=== PATIENT | female | born 1960 | race Caucasian/White ===

== ENCOUNTER → 2017-07-05 23:49 | Outpatient (CLI) | payer MEDICAID ==
[2014-02-17 09:01] VITALS: BMI 25.9
[~2017-07-05 23:49] MED LIST: ASCORBIC ACID500 MG PO; CALCIUM 500 + D1 TAB PO; ESTROVEN; OMEGA-3100 MG; VITAMIN B-122500 MCG PO; VITAMIN E1000 UNIT PO; ZYRTEC10 MG PO
== END | disposition home or self-care (01) ==
LOC: D.MAMMO 13:15
DX: Z12.31 Encounter for screening mammogram for malignant neoplasm of breast (principal)

== ENCOUNTER → 2017-07-20 12:41 | Outpatient (CLI) | payer MEDICAID ==
[2014-02-17 09:01] VITALS: BMI 25.9
== END | disposition home or self-care (01) ==
LOC: D.MRI 07-18 11:30
DX: M25.562 Pain in left knee (principal)

== ENCOUNTER → 2017-11-30 16:52 | Outpatient (CLI) | payer MEDICAID ==
[2014-02-17 09:01] VITALS: BMI 25.9
== END | disposition home or self-care (01) ==
LOC: D.CT 16:52
DX: R10.9 Unspecified abdominal pain (principal)

== ENCOUNTER → 2018-10-23 10:46 | Outpatient (CLI) | payer MEDICAID ==
[2014-02-17 09:01] VITALS: BMI 25.9
== END | disposition home or self-care (01) ==
LOC: D.MRI 10:46
PROVIDERS: ATTEND Orthopaedic Surgery
DX: M25.562 Pain in left knee (principal)

== ENCOUNTER 2018-11-06 12:00 | Outpatient (CLI) | payer MEDICAID ==
[2014-02-17 09:01] VITALS: BMI 25.9
== END 2018-11-06 12:30 | disposition home or self-care (01) ==
LOC: D.MAMMO 12:00
PROVIDERS: ATTEND Family Medicine
DX: Z12.31 Encounter for screening mammogram for malignant neoplasm of breast (principal)

== ENCOUNTER 2019-12-11 15:57 | Emergency (ER) | payer MEDICAID ==
[~2019-12-11] VITALS: Ht 172.7 cm; Wt 81.8 kg
[2019-12-11 16:18] VITALS: Ht 172.7 cm; Wt 81.8 kg
[2019-12-11] MEDS ORDERED: ZOLOFT100 MG (16:20)
[2019-12-11] MEDS ORDERED: PEPCID40 MG (16:20)
[2019-12-11] MEDS ORDERED: OMEPRAZOLE40 MG (16:21)
[2019-12-11 17:07] LABS: BASOPHILS 0.3 % (0-2); EOSINOPHILS 0.5 % (0-7); IMMATURE GRANULOCYTES 0.2 % (0-5); LYMPHOCYTES 9.5 % (15-50); MCH 29.2 pg (26.0-34.0); MCHC 34.1 g/dL (31.0-37.0); MCV 85.6 fL (80.0-100.0); MEAN PLATELET VOLUME 8.9 fL (7.4-10.4); MONOCYTES 4.4 % (2-11); NEUTROPHILS 85.1 % (40-80); PLATELET COUNT 172 10x3/uL (130-400); RBC 5.14 10x6/uL (4.00-5.40); RDW 13.4 % (11.5-14.5); WBC 9.6 10x3/uL (4.8-10.8)
[2019-12-11 17:17] LABS: ANION GAP 11.7 mmol/L (8-16); CALCIUM 9.2 mg/dL (8.5-10.1); CARBON DIOXIDE 25.6 mmol/L (21.0-32.0); POTASSIUM - SERUM 3.3 mmol/L (3.5-5.1)
[2019-12-11 17:25] LABS: ALBUMIN 3.8 g/dL (3.4-5.0); BILIRUBIN - TOTAL 0.48 mg/dL (0.2-1.3); PROTEIN - SERUM 6.6 g/dL (6.4-8.2); TROPONIN-I 0.027 ng/mL (0.000-0.060)
[2019-12-11 19:09] LABS: BILIRUBIN NEGATIVE (NEGATIVE); KETONE NEGATIVE (NEGATIVE); NITRITE NEGATIVE (NEGATIVE); UROBILINOGEN NORMAL (NORMAL)
[2019-12-11 19:10] LABS: EPITHELIAL CELLS OCC /hpf (0-5); WHITE CELLS - URINE OCC /hpf (NEGATIVE)
[2019-12-11 20:44] VITALS: BP 136/71
== END 2019-12-11 20:59 | disposition other institution (70) ==
LOC: D.ER 15:57
PROVIDERS: Emergency Medicine
DX: N20.0 Calculus of kidney (principal); R10.30 Lower abdominal pain, unspecified; S37.062A Major laceration of left kidney, initial encounter; K21.9 Gastro-esophageal reflux disease without esophagitis; R11.2 Nausea with vomiting, unspecified; R19.7 Diarrhea, unspecified